=== PATIENT | female | born 1985 | race Caucasian/White ===

== ENCOUNTER 2020-03-10 03:18 | Outpatient (CLI) | payer BC, SELFPAY ==
[2020-03-11 14:23] LABS: COVID-19 RT-PCR UVMMC Result Negative (Negative)
== END 2020-03-10 03:19 | disposition home or self-care (01) ==
PROVIDERS: PCP Family Medicine; Visit Provider Family Medicine
DX: Z20.822 Contact with and (suspected) exposure to COVID-19 (principal)
CPT/HCPCS: U0003

== ENCOUNTER 2020-03-17 02:43 | Outpatient (CLI) | payer BC, SELFPAY ==
[2020-03-18 14:36] LABS: COVID-19 RT-PCR UVMMC Result Negative (Negative)
== END 2020-03-17 02:44 | disposition home or self-care (01) ==
PROVIDERS: PCP Family Medicine; Visit Provider Family Medicine
DX: Z20.822 Contact with and (suspected) exposure to COVID-19 (principal)
CPT/HCPCS: U0003

== ENCOUNTER 2024-08-04 20:11 | Emergency (ER) | payer SELFPAY ==
[2024-08-04] VITALS (28 sets, daily range): BP systolic 122–152; BP diastolic 61–90; PULSE 74–112; RESP 15–28; TEMP 36.6; O2SAT 81–100
--- NOTE | 2024-08-04 20:45 | DI.CT_ITS ---
Exam(s) CT HEAD WO EXAM: CT HEAD WO CLINICAL HISTORY: R. side vision loss and R. facial sensory changes. TECHNIQUE: Imaging Protocol: Axial computed tomography images with coronal and sagittal reformatted images were created and reviewed COMPARISON: No exams were available for comparison FINDINGS: Ventricles and Extra axial spaces: Normal in size and morphology for the patient's age. Hemorrhage: Focal area parenchymal hemorrhage seen in the left occipital lobe measuring 3.2 x 2.8 x 2.3 cm. There is mild adjacent vasogenic edema. No additional areas of hemorrhage are identified. Cerebral parenchyma: No evidence of acute infarct or mass. Midline shift: None. Brainstem/Cerebellum: Normal. Bones: No skull or facial fractures. Visualized Paranasal sinuses:Clear. Mastoids: Clear. Soft Tissues: Unremarkable. ORBITS: Unremarkable. PITUITARY: Not enlarged. IMPRESSION: 3.2 centimeter acute parenchymal hemorrhage in the left occipital lobe with mild surrounding edema. The preliminary [facility] report was reviewed. RADIATION DOSE DELIVERED: 849.29mGy.cm Total DLP DATA REPOSITORY: All CT scans at this facility are submitted to the National Radiology Data Registry (NRDR) Dose Index Registry (DIR) with the [employer] (ACR). RADIATION OPTIMIZATION: All CT scans at this facility use at least one of these dose optimization techniques: automated exposure control; mA and/or kV adjustment per patient size (includes targeted exams where dose is matched to clinical indication); or iterative reconstruction.
[2024-08-04] MEDS: Lactated Ringers 1,000 ML 1000 ML IV (21:05)
[2024-08-04] MEDS: diphenhydrAMINE 50 MG/ML VIAL 25 MG IVP (21:08)
[2024-08-04] MEDS: Metoclopramide 10 MG/2 ML VIAL IVP (21:08)
[2024-08-04 21:19] LABS: Abs Immature Grans 0.02 10^3/uL (0.0-0.06); Absolute Basophil Count 0.05 10^3/uL (0.0-0.2); Absolute Eosinophil Count 0.06 10^3/uL (0.0-0.7); Absolute Monocyte Count 0.67 10^3/uL (0.1-0.8); Basophils % 0.6 %; Eosinophils % 0.7 %; HCT 36.6 % (36.0-46.0); HGB 11.9 g/dL (11.2-15.7); Immature Grans % 0.2 %; Lymphocytes % 25.9 %; MCH 26.7 pg (27.0-33.0); MCHC 32.5 % (32.0-36.0); MCV 82 fL (80-95); MPV 9.4 fL (8.0-11.0); Monocytes % 8.3 %; Neutrophils % 64.3 %; Platelet Count 335 10^3/uL (130-400); RBC 4.45 10^6/uL (3.93-5.22); RDW 13.5 % (11.7-14.6); RDW-SD 40.3 fL
--- NOTE | 2024-08-04 21:20 | ED.GENADUL_ITS ---
Discharge Plan Disposition Patient Disposition: Transfer-Acute Inpatient Care Specific Acute Inpt Facility: [facility] Condition: Critical Discharge Details Clinical Impression: Ruptured cerebral arteriovenous malformation, Loss of peripheral visual field, Rt facial numbness Primary Care Provider: Franco Lopez ED Provider: Gi Fair Home Meds and New Rx's Prescriptions: No Action No Known Home Meds HPI General Mode of arrival: ambulatory . Date/Time Provider Initiated Documentation: 08/04/24 20:15 . Limitations to Documentation: no limitations . Information obtained by: patient and old records reviewed . HPI Narrative: This is a previously healthy 38-year-old female patient status post tubal ligation presenting for evaluation of right sided peripheral vision loss. She reports that around 830 this morning she had a sudden onset left-sided headache, started at rest, not preceded by any trauma, chiropractic manipulation, exertion or heavy lifting. She reports that she took an ibuprofen and took a nap, and when she awoke she had complete right-sided vision loss in the peripheral regions. She felt sensory changes in her right face and right upper extremities, no new weakness. She reports that she had some nausea but her headache was gone. She has never had a significant problem with migraine headaches, does not take blood thinning medications, and prior to this event was in her normal state of health. Related Data Home Medications ?Medication ?Instructions ?Recorded ?Confirmed Unknown [No Known Home Meds] 08/04/24 0 08/04/24 Allergies Allergy/AdvReac Type Severity Reaction Status Date / Time No Known Allergies Allergy Unverified 08/04/24 20:22 General Stated Complaint: EyeProblem ELYSIA: 3 Exam Narrative Exam Narrative: Gen: awake and alert, in no apparent distress. Appears well nourished. HEENT: PERRL, EOMs full and without nystagmus. Right eye peripheral upper and lower visual field cuts. External ears and nose normal, mucous membranes moist. Neck: Supple, full range of motion, no observable masses Lungs: No increased work of breathing CV: Heart with regular rate and rhythm. Strong and symmetrical radial pulses. Abdomen: Soft, nondistended, non-tender MSK: No joint swelling, no redness. Full ROM without limitation, no external traumatic findings. Skin: No rashes or lesions to visualized skin. Normal color, warm, and dry. Neuro: Cranial nerves II-XII intact and symmetrical bilaterally with the exception of the right visual field cut. 5/5 strength in all muscle groups x4 extremities. Sensory deficits appreciated to the right face and right upper extremity without complete sensory loss. Ambulates with steady gait. Psych: Appropriate for situation. Course Vital Signs Vital signs: Vital Signs Temperature 36.6 C 08/04/24 20:16 Pulse 83 08/04/24 20:16 Respiratory Rate 16 08/04/24 20:16 Blood Pressure 122/82 08/04/24 20:16 Pulse Oximetry 96 08/04/24 20:16 Temperature 36.6 C 08/04/24 20:16 Temperature Source Oral 08/04/24 20:16 Pulse 83 08/04/24 20:16 Respiratory Rate 16 08/04/24 20:16 Blood Pressure 122/82 08/04/24 20:16 Blood Pressure Position Sitting 08/04/24 20:16 Pulse Oximetry 96 08/04/24 20:16 Oxygen Delivery Method Room Air 08/04/24 20:16 Oxygen Flow Rate 0 08/04/24 20:16 Pain Level 0 08/04/24 20:16 Medical Decision Making This is a 38-year-old female patient presenting for evaluation of right-sided vision loss and sensory changes. My differential includes but is not limited to intracranial hemorrhage, stroke, complex migraine, vascular abnormality including dissection or aneurysm. The patient has no eye pain suggestive of glaucoma or optic neuritis. Certainly considered mass effect and intracranial malignancy. I am reassured by the patient's hemodynamic stability, and will obtain a CTA of the brain and neck. We will obtain laboratory studies to include CBC, CMP, magnesium, and will provide the patient with a liter of IV fluid as well as Reglan and Benadryl for her initial migraine management. I will hold on Toradol until I have evaluated her imaging. -I was called to bedside in CT to review the Noncon head CT, which shows a 3 cm left occipital hemorrhage. I consulted neurosurgery, and their recommendations include Keppra, 1g, nicardipine drip to maintain blood pressures less than 140 mmHg systolic, and emergent transfer to their ED. These interventions were performed and a CTA was obtained at the recommendation which shows an AVM in that region as a cause of her rupture. The patient's neuro examination remains unchanged, and she will be transported by [facility] to the [facility] ED. Accepting physician Norm. Patient remained hemodynamically appropriate with an improved blood pressure while under my care. Left our facility without incident. Gi Fair MD Critical Care Time Critical Care Time Critical Care Time: Yes Total Critical Care Time: 35 Attestation: Upon my evaluation, this patient had a high probability of imminent or life- threatening deterioration due to intracranial hemorrhage with vision loss, which required my direct attention, intervention, and personal management. I have personally provided 35 minutes of critical care time exclusive of time spent on separately billable procedures. Time includes review of laboratory data, radiology results, discussion with consultants, and monitoring for potential decompensation. Interventions were performed as documented above. Gi Fair MD [facility] All Active Problems (Updated 08/04/24 @ 23:15 by Gi Fair MD) Rt facial numbness (Acute) Loss of peripheral visual field (Acute) Ruptured cerebral arteriovenous malformation (Acute) Surgical History (Updated 11/21/17 @ 14:34 by [employer] [place]) Ligation of fallopian tube Social History Smoking/Tobacco Use Status: Never Smoking risk assessment performed?: Yes Alcohol Intake: never Drug use: Never Substance use type: does not use Housing: apartment Do you feel safe at home: Yes Do you feel safe in your relationship?: Yes
[2024-08-04 21:30] LABS: Prothrombin Time 9.9 sec (9.1-11.1)
[2024-08-04 21:35] LABS: ALT 25 U/L (14-59); AST 13 U/L (15-37); Albumin 3.8 g/dL (3.4-5.0); Alkaline Phosphatase 73 U/L (46-116); Anion Gap 11.9 mmol/L (3-11); BUN 8 mg/dL (7-18); Bilirubin, Total 0.3 mg/dL (0.2-1.0); CO2 26.1 mmol/L (21.0-32.0); CREATININE 0.7 mg/dL (0.55-1.02); Calcium 8.9 mg/dL (8.5-10.1); Chloride 104 mmol/L (98-107); Estimated GFR 113.46 (mL/min/1.73m2); Glucose 125 mg/dL (74-106); Magnesium 2.1 mg/dL (1.8-2.4); Potassium 3.4 mmol/L (3.5-5.1); Sodium 142 mmol/L (136-145); Total Protein 7.4 g/dL (6.4-8.2)
--- NOTE | 2024-08-04 22:14 | DI.[facility]_ITS ---
PROCEDURE INFORMATION: Exam: CT Head Without Contrast Exam date and time: 08/04/2024 9:30 PM Age: 38 years old Clinical indication: Stroke-like symptoms; Visual disturbance; Additional info: R. Side vision loss and R. Facial sensory changes TECHNIQUE: Imaging protocol: Computed tomography of the head without contrast. Other technique: STROKE PROTOCOL was implemented. COMPARISON: No relevant prior studies available. FINDINGS: Brain: 3.2 x 2.8 x 2.3 cm (10 mL) acute to subacute appearing intraparenchymal hematoma in the left occipital lobe with mild adjacent vasogenic edema. No extra-axial fluid collection. No evidence of mass effect or midline shift. Zarate-white matter differentiation is preserved. Cerebral ventricles: No ventriculomegaly. Paranasal sinuses: Unremarkable. No fluid levels. Mastoid air cells: Unremarkable. Bones: No acute calvarial fracture. Soft tissues: Scalp soft tissues are unremarkable. IMPRESSION: 3.2 cm acute to subacute appearing intraparenchymal hematoma in the left occipital lobe with mild adjacent vasogenic edema. THIS REPORT CONTAINS FINDINGS THAT MAY BE CRITICAL TO PATIENT CARE. The findings were verbally communicated via telephone conference with Gi Fair at 10:12 PM EDT on 08/04/2024. The findings were acknowledged and understood. Dictated and Authenticated by: Timmy Vasquez MD. [facility] Angelo MD
--- NOTE | 2024-08-04 22:15 | DI.CT_ITS ---
Exam(s) CT BRAIN NECK CTA EXAM: CT BRAIN NECK CTA CLINICAL HISTORY: occipital hemorrhage. TECHNIQUE: Imaging Protocol: Axial CT angiography was performed with multi- slice acquisition and multi-planar and MIP reconstructions. CONTRAST MATERIAL: Intravenous: Omnipaque 350 Contrast volume:100 ml COMPARISON: CT CT HEAD WO from 08/04/2024 FINDINGS: CT Head W contrast: Ventricles and Extra axial spaces: Normal in size and morphology for the patient's age. Hemorrhage: Roughly 3 centimeter focus of acute hemorrhage is again noted in the left occipital lobe. No additional hemorrhagic foci are visible. Cerebral parenchyma: No evidence of acute infarct. Multiple enhancing serpiginous vessels arising from posterior cerebral artery branches are noted in/adjacent to the area of hemorrhage in the left occipital lobe the draining veins appear to feed into the superior sagittal sinus. No additional vascular malformations are identified elsewhere. Midline shift: None. Brainstem/Cerebellum: No acute findings. Calvarium: Normal. Visualized Paranasal sinuses/Mastoids: Clear. Soft Tissues: Unremarkable. Enhancement: Venous sinuses are patent. CTA Brain W: Internal Carotid Arteries: Right: No aneurysm, occlusion or significant stenosis. Left: No aneurysm, occlusion or significant stenosis. Middle Cerebral Arteries: Right: No aneurysm, occlusion or significant stenosis. Left: No aneurysm, occlusion or significant stenosis. Anterior Cerebral Arteries: Right: No aneurysm, occlusion or significant stenosis. Left: No aneurysm, occlusion or significant stenosis. Posterior cerebral Arteries: Right: No aneurysm, occlusion or significant stenosis. Left: Left occipital AVM noted originating from branches of left posterior cerebral artery. No occlusion or significant stenosis. Vertebral Arteries: Right: No aneurysm, occlusion or significant stenosis. Left: No aneurysm, occlusion or significant stenosis. Basilar Artery: No aneurysm, occlusion or significant stenosis. CTA Neck W: Common Carotid: Right: No dissection, occlusion or significant stenosis. Left: No dissection, occlusion or significant stenosis. External Carotid: Right: No dissection, occlusion or significant stenosis. Left: No dissection, occlusion or significant stenosis. Internal Carotid: Right: No dissection, occlusion or significant stenosis. Left: No dissection, occlusion or significant stenosis. Vertebral Artery: Right: No dissection, occlusion or significant stenosis. Left: No dissection, occlusion or significant stenosis. Lung Apices: No acute findings. Bones: No acute abnormality. Soft Tissues: Normal. IMPRESSION: CTA brain: AV malformation demonstrated in the left occipital lobe adjacent to the roughly 3 cm area of hemorrhage. CTA neck: No evidence of occlusion, significant stenosis or dissection. The preliminary [facility] report was reviewed. RADIATION DOSE DELIVERED: 1,211.56mGy.cm Total DLP DATA REPOSITORY: All CT scans at this facility are submitted to the National Radiology Data Registry (NRDR) Dose Index Registry (DIR) with the [employer] (ACR). RADIATION OPTIMIZATION: All CT scans at this facility use at least one of these dose optimization techniques: automated exposure control; mA and/or kV adjustment per patient size (includes targeted exams where dose is matched to clinical indication); or iterative reconstruction.
[2024-08-04] MEDS: Omnipaque 350 MG/ML 100 ML BTL IJ (22:30)
[2024-08-04] MEDS: Normal Saline - Diluent 50 ML VIAL IJ (22:30)
[2024-08-04] MEDS: Normal Saline Flush 10 ML SYR IVP (22:31)
[2024-08-04] MEDS: niCARdipine 25 MG in Normal Saline 240 ML 50 MG IV (22:52)
[2024-08-04] MEDS: levETIRAcetam 1,000 MG in Normal Saline 100 ML 400 MG IVPB (22:53)
--- NOTE | 2024-08-04 22:57 | DI.[facility]_ITS ---
Addendum created by Timmy Vasquez MD on 08/04/2024 10:58:51 PM EDT: THIS REPORT CONTAINS FINDINGS THAT MAY BE CRITICAL TO PATIENT CARE. The findings were verbally communicated via telephone conference with ZIGGY Phillips at 10:58 PM EDT on 08/04/2024. The findings were acknowledged and understood. Initial report created on 08/04/2024 10:56:58 PM EDT: PROCEDURE INFORMATION: Exam: CTA Head With Contrast, Arteriography Exam date and time: 08/04/2024 10:27 PM Age: 38 years old Clinical indication: Stroke-like symptoms; Other: R. Side vision loss and R. Facial sensory changes; Additional info: Occipital hemorrhage. R. Side vision loss and R. Facial sensory changes TECHNIQUE: Imaging protocol: Computed tomographic angiography of the head with contrast. Exam focused on the arteries. 3D rendering (Not supervised by radiologist): MIP and/or 3D reconstructed images were created by the technologist. Contrast material: OMNI 350; Contrast volume: 70 ml; Contrast route: INTRAVENOUS (IV); COMPARISON: CT BRAIN NECK CTA 08/04/2024 9:30 PM FINDINGS: ANTERIOR CIRCULATION: Right internal carotid artery: Intracranial segment is patent with no significant stenosis. No aneurysm. Right middle cerebral artery: No occlusion or significant stenosis. No aneurysm. Right anterior cerebral artery: No occlusion or significant stenosis. No aneurysm. Left internal carotid artery: Intracranial segment is patent with no significant stenosis. No aneurysm. Left middle cerebral artery: No occlusion or significant stenosis. No aneurysm. Left anterior cerebral artery: No occlusion or significant stenosis. No aneurysm. POSTERIOR CIRCULATION: Right vertebral artery: No occlusion or significant stenosis. No aneurysm. Left vertebral artery: No occlusion or significant stenosis. No aneurysm. Basilar artery: No occlusion or significant stenosis. No aneurysm. Right posterior cerebral artery: No occlusion or significant stenosis. No aneurysm. Left posterior cerebral artery: No occlusion or significant stenosis. Other findings: Left posterior occipital lobe arteriovenous malformation with the nidus measuring approximately 2.7 cm. This AVM is predominantly fed by left posterior cerebral artery branches. The predominant draining vein communicates with the superior sagittal sinus. IMPRESSION: Left posterior occipital lobe arteriovenous malformation with the nidus measuring approximately 2.7 cm. Recommend neurosurgery consultation. Please refer to noncontrast head CT for additional findings. PROCEDURE INFORMATION: Exam: CTA Neck With Contrast Exam date and time: 08/04/2024 10:27 PM Age: 38 years old Clinical indication: Stroke-like symptoms; Other: R. Side vision loss and R. Facial sensory changes; Additional info: Occipital hemorrhage. R. Side vision loss and R. Facial sensory changes TECHNIQUE: Imaging protocol: Computed tomographic angiography of the neck with contrast. Exam focused on the cervical segments of the vasculature. 3D rendering (Not supervised by radiologist): MIP and/or 3D reconstructed images were created by the technologist. Contrast material: OMNI 350; Contrast volume: 70 ml; Contrast route: INTRAVENOUS (IV); COMPARISON: CT BRAIN NECK CTA 08/04/2024 9:30 PM FINDINGS: Right common carotid artery: No significant stenosis. No dissection or occlusion. Right internal carotid artery: Extracranial segment is patent with no significant stenosis (0% stenosis by NASCET criteria). No dissection or occlusion. Right external carotid artery: No occlusion or significant stenosis. Left common carotid artery: No significant stenosis. No dissection or occlusion. Left internal carotid artery: Extracranial segment is patent with no significant stenosis (0% stenosis by NASCET criteria). No dissection or occlusion. Left external carotid artery: No occlusion or significant stenosis. Right vertebral artery: No significant stenosis. No dissection or occlusion. Left vertebral artery: No significant stenosis. No dissection or occlusion. Soft tissues: Unremarkable. Bones/joints: No acute fracture. IMPRESSION: No occlusion or significant stenosis in the arteries of the neck. REFERENCES: NASCET CRITERIA. The degree of stenosis in the cervical segment of the internal carotid artery is based on NASCET criteria. Normal is no stenosis. Mild is less than 50% stenosis. Moderate is 50-69% stenosis. Severe is 70% to 99% stenosis. Total occlusion is no detectable patent lumen. Dictated and Authenticated by: Timmy Vasquez MD. Order[facility] E[facility] Angelo MD
== END 2024-08-04 23:43 | disposition short-term general hospital (02) ==
PROVIDERS: Emergency Provider Emergency Medicine; PCP Family Medicine
DX: I60.8 Other nontraumatic subarachnoid hemorrhage (principal); H53.40 Unspecified visual field defects; R20.0 Anesthesia of skin
CPT/HCPCS: 70496; 70498; 80053; 96361; 96365; 96375; 99285; 70450; 83735; 85025; 85610; J1200; J1953; J2404; J2765; J3490